=== PATIENT | female | born 1990 ===

== ENCOUNTER 2020-10-23 01:30 | Emergency (ER) | payer SELFPAY ==
[2020-10-23] MEDS ORDERED: HYDROCODONE/APAP 5/325 MG TAB ONE (02:09)
--- NOTE | 2020-10-23 02:41 | EDPHYS ---
Physician Documentation [facility] Name: Gaby Saez Age: 30 yrs Sex: Female : 1990 Arrival Date: 10/23/2020 Time: 01:33 Bed 8 Private MD: ANNETTA Physician Be Whittaker HPI: 10/23 01:49 This 30 yrs old Female presents to ER via Ambulatory with complaints of Foot Injury. mh7 01:49 The patient presents with an injury. The complaints affect the right foot. Context: The mh7 problem was sustained at work, resulted from a heavy object falling, box of liquor, Mechanism of Injury: Axial Compression the patient can fully bear weight, the patient is able to ambulate, with mild difficulty. Onset: The symptoms/episode began/occurred yesterday. Modifying factors: The symptoms are alleviated by nothing, the symptoms are aggravated by weight bearing, movement. Associated signs and symptoms: Pertinent negatives: calf tenderness, fever, nausea, numbness, rash, swelling, tingling, vomiting, warmth, weakness. Severity of symptoms: At their worst the symptoms were moderate, yesterday, in the emergency department the symptoms are unchanged. 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 - Social history:: Smoking status: Patient reports the use of cigarette tobacco products, smokes one-half pack cigarettes per day. ROS: 01:49 Constitutional: Negative for fever, chills, and weight loss, Eyes: Negative for injury, mh7 pain, redness, and discharge, Neck: Negative for injury, pain, and swelling. 01:49 ENT: Negative for injury, pain, and discharge, Cardiovascular: Negative for chest pain, palpitations, and edema, Respiratory: Negative for shortness of breath, cough, wheezing, and pleuritic chest pain, Abdomen/GI: Negative for abdominal pain, nausea, vomiting, diarrhea, and constipation, Back: Negative for injury and pain, : Negative for injury, bleeding, discharge, and swelling, Skin: Negative for injury, rash, and discoloration, Neuro: Negative for headache, weakness, numbness, tingling, and seizure, Psych: Negative for depression, anxiety, suicide ideation, homicidal ideation, and hallucinations, Allergy/Immunology: Negative for hives, rash, and allergies, Endocrine: Negative for neck swelling, polydipsia, polyuria, polyphagia, and marked weight changes, Hematologic/Lymphatic: Negative for swollen nodes, abnormal bleeding, and unusual bruising. Exam: 01:49 Constitutional: This is a well developed, well nourished patient who is awake, alert, mh7 and in no acute distress. Head/Face: Normocephalic, atraumatic. Eyes: Pupils equal round and reactive to light, extra-ocular motions intact. Lids and lashes normal. Conjunctiva and sclera are non-icteric and not injected. Cornea within normal limits. Periorbital areas with no swelling, redness, or edema. Neck: Trachea midline, no thyromegaly or masses palpated, and no cervical lymphadenopathy. Supple, full range of motion without nuchal rigidity, or vertebral point tenderness. No Meningismus. 01:49 Skin: Warm, dry with normal turgor. Normal color with no rashes, no lesions, and no evidence of cellulitis. Neuro: Awake and alert, GCS 15, oriented to person, place, time, and situation. Cranial nerves II-XII grossly intact. Motor strength 5/5 in all extremities. Sensory grossly intact. Cerebellar exam normal. Normal gait. Psych: Awake, alert, with orientation to person, place and time. Behavior, mood, and affect are within normal limits. 01:49 Musculoskeletal/extremity: Extremities: noted in the right foot dorsum: pain, tenderness, ROM: limited active range of motion due to pain, in the right foot, limited passive range of motion due to pain, in the right foot, Circulation is intact in all extremities. Pulses: are normal with no appreciated deficits, Perfusion: the patient is normally perfused throughout, Perfusion: the extremity is normally perfused throughout, Calf tenderness, is absent, Edema, is not appreciated, Sensation intact. Compartment Syndrome exam of affected extremity: is normal. no numbness, no tingling, no sensation deficit, no palor, no weak pulses, Joints: All joints appear normal with full range of motion. Weight bearing: able to fully bear weight, Tendon exam: specific tendon testing normal through active and passive range of motion 02:38 Chest/axilla: Normal chest wall appearance and motion. Nontender with no deformity. [facility] No lesions are appreciated. Cardiovascular: Regular rate and rhythm with a normal S1 and S2. No gallops, murmurs, or rubs. Normal PMI, no JVD. No pulse deficits. Respiratory: Lungs have equal breath sounds bilaterally, clear to auscultation and percussion. No rales, rhonchi or wheezes noted. No increased work of breathing, no retractions or nasal flaring. Abdomen/GI: Soft, non-tender, with normal bowel sounds. No distension or tympany. No guarding or rebound. No evidence of tenderness throughout. Back: No spinal tenderness. No costovertebral tenderness. Full range of motion. Vital Signs: 01:45 BP 135 / 89; Pulse 91; Resp 16; Temp 98.3; Pulse Ox 98% ; Weight 81.65 kg; Height 5 ft. rv 6 in. (167.64 cm); Pain 7/10; 02:40 BP 125 / 75; Pulse 90; Resp 17; Pulse Ox 98% ; rr5 01:45 Body Mass Index 29.05 (81.65 kg, 167.64 cm) rv MDM: 02:38 Differential diagnosis: fracture, sprain, contusion. Data reviewed: vital signs, nurses [facility] notes, radiologic studies, plain films. Data interpreted: Pulse oximetry: on room air is 98 %. Interpretation: normal. Counseling: I had a detailed discussion with the patient and/or guardian regarding: the historical points, exam findings, and any diagnostic results supporting the discharge/admit diagnosis, radiology results, the need for outpatient follow up, to return to the emergency department if symptoms worsen or persist or if there are any questions or concerns that arise at home. Response to treatment: the patient's symptoms have markedly improved after treatment. 02:[address] [facility] 10/23 01:48 Order name: Foot Right [address] [facility] 10/23 02:36 Order name: [place] Wrap; Complete Time: 02:36 rv 10/23 02:36 Order name: Ortho shoe; Complete Time: 02:36 10/23 02:37 Order name: Crutches; Complete Time: 02:43 [facility] Administered Medications: 01:52 Drug: [place] (HYDROcodone-acetaminophen) 5 mg-325 mg 1 tabs Route: PO; rv 02:45 Follow up: Response: No adverse reaction; RASS: Alert and Calm (0) rv Disposition: 10/23/20 02:40 Discharged to Home. Impression: Contusion, Right Foot. - Condition is Stable. - Discharge Instructions: Crutch Use, [id number], Foot Contusion, [id number]. - Prescriptions for Ibuprofen 800 mg Oral Tablet - take 1 tablet by ORAL route every 8 hours As needed take with food; 15 tablet. - Work release form, Medication Reconciliation Form, Thank You Letter, Antibiotic Education, Prescription Opioid Use form. - Follow up: Private Physician; When: 1 - 2 days; Reason: Worsening of condition, Recheck today's complaints, Continuance of care, Re-evaluation by your physician. Follow up: Irving Cesar DPM; When: 2 - 3 days; Reason: Worsening of condition, Recheck today's complaints. - Problem is new. - Symptoms have improved. Signatures: Dispatcher [employer] EDMS Bruce Bocanegra RN RN rv Gonzalo Loo RN RN rr5 Be Whittaker MD MD mh7 Corrections: (The following items were deleted from the chart) 02:47 02:40 10/23/2020 02:40 Discharged to Home. Impression: Contusion, Right Foot. Condition rr5 is Stable. Forms are Work release form, Medication Reconciliation Form, Thank You Letter, Antibiotic Education, Prescription Opioid Use. Follow up: Private Physician; When: 1 - 2 days; Reason: Worsening of condition, Recheck today's complaints, Continuance of care, Re-evaluation by your physician. Follow up: Irving Cesar; When: 2 - 3 days; Reason: Worsening of condition, Recheck today's complaints. Problem is new. Symptoms have improved. mh7
--- NOTE | 2020-10-23 02:41 | ER ---
Nurse's Notes [facility] Name: Gaby Saez Age: 30 yrs Sex: Female : 1990 Arrival Date: 10/23/2020 Time: 01:33 Bed 8 Private MD: Diagnosis: Contusion, Right Foot Presentation: 10/23 01:45 Chief complaint: Patient states: A BOX FULL OF LIQUOR FELL ON TOP OF THE RIGHT FOOT, rv YESTERDAY. PAIN DID NOT GET BETTER. Coronavirus screen: Client denies travel out of the [place] in the last 14 days. Ebola Screen: No symptoms or risks identified at this time. Initial Sepsis Screen: Does the patient meet any 2 criteria? No. Patient's initial sepsis screen is negative. Does the patient have a suspected source of infection? No. Patient's initial sepsis screen is negative. Risk Assessment: Do you want to hurt yourself or someone else? Patient reports no desire to harm self or others. Onset of symptoms was October 21, 2020. 01:45 Method Of Arrival: Ambulatory rv 01:45 Acuity: LIDA 4 rv Triage Assessment: 01:47 General: Appears comfortable, Behavior is calm, cooperative. Pain: Complains of pain in rv right foot. EENT: No signs and/or symptoms were reported regarding the EENT system. Neuro: Level of Consciousness is awake, alert, obeys commands, Oriented to person, place, time, situation. Cardiovascular: Patient's skin is warm and dry. Respiratory: Airway is patent Respiratory effort is even, unlabored. Musculoskeletal: Swelling absent. Injury Description: A BOX FELL ON TOP OF THE RIGHT FOOT. 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 - Social history:: Smoking status: Patient reports the use of cigarette tobacco products, smokes one-half pack cigarettes per day. Screenin:48 Abuse screen: Denies threats or abuse. Denies injuries from another. Nutritional rv screening: No deficits noted. Tuberculosis screening: No symptoms or risk factors identified. Fall Risk None identified. Assessment: 01:45 General: Appears in no apparent distress. uncomfortable, Behavior is calm, cooperative, rr5 appropriate for age. 01:45 Pain: Complains of pain in right foot Pain currently is 7 out of 10 on a pain scale. rr5 Quality of pain is described as aching, Pain began suddenly, Is intermittent. Neuro: Level of Consciousness is awake, alert, obeys commands, Oriented to person, place, time. Cardiovascular: Capillary refill < 3 seconds Patient's skin is warm and dry. Respiratory: Airway is patent Respiratory effort is even, unlabored, Respiratory pattern is regular, symmetrical. GI: No signs and/or symptoms were reported involving the gastrointestinal system. : No signs and/or symptoms were reported regarding the genitourinary system. EENT: No signs and/or symptoms were reported regarding the EENT system. Derm: Skin is pink, warm \T\ dry. Musculoskeletal: Capillary refill < 3 seconds, Reports pain in right foot. 02:45 Reassessment: Patient appears in no apparent distress at this time. Patient is alert, rr5 oriented x 3, equal unlabored respirations, skin warm/dry/pink. discharge instruction given and explained without complaints made. 02:46 Reassessment: patient refused for crutches. to cancel the crutches order. rr5 Vital Signs: 01:45 BP 135 / 89; Pulse 91; Resp 16; Temp 98.3; Pulse Ox 98% ; Weight 81.65 kg; Height 5 ft. rv 6 in. (167.64 cm); Pain 7/10; 02:40 BP 125 / 75; Pulse 90; Resp 17; Pulse Ox 98% ; rr5 01:45 Body Mass Index 29.05 (81.65 kg, 167.64 cm) rv ED Course: 01:33 Patient arrived in ED. bp1 01:36 Bruce Bocanegra RN is Primary Nurse. rv 01:36 Be Whittaker MD is Attending Physician. mh7 01:46 Triage completed. rv 01:47 Arm band placed on right wrist. Patient placed in the treatment room, on a stretcher, rv Patient notified of wait time. 01:48 Patient has correct armband on for positive identification. Pulse ox on. NIBP on. rv 02:07 Foot Right 3 View XRAY In Process Unspecified. EDMS 02:35 No provider procedures requiring assistance completed. Patient did not have IV access rv during this emergency room visit. 02:35 Ortho shoe applied to right foot. rr5 02:39 Irving Cesar DPM is Referral Physician. karla Administered Medications: 01:52 Drug: [place] (HYDROcodone-acetaminophen) 5 mg-325 mg 1 tabs Route: PO; rv 02:45 Follow up: Response: No adverse reaction; RASS: Alert and Calm (0) rv Outcome: 02:40 Discharge ordered by . mh7 02:46 Discharged to home ambulatory, with family. rr5 02:46 Condition: stable 02:46 Discharge instructions given to patient, Instructed on discharge instructions, follow up and referral plans. medication usage, Demonstrated understanding of instructions, follow-up care, medications, Prescriptions given X 1. 02:47 Patient left the ED. rr5 Signatures: Dispatcher [employer] EDMS Bruce Bocanegra RN RN rv Gonzalo Loo RN RN rr5 Debra Andrade Maurice, MD MD [facility]
[2020-10-23 03:17] VITALS: TEMP 98.3; O2SAT 98
[2020-10-23 03:18] VITALS: BP 125/75
--- NOTE | 2020-10-23 11:44 | RAD REPORT ---
EXAM DESCRIPTION: RAD - Foot Right 3 View - 10/23/2020 2:07 am CLINICAL HISTORY: 30 years, Female, trauma COMPARISON: None. FINDINGS: 3 X-ray views of the Right foot (frontal lateral and oblique) were performed. No areas of acute bony injuries were demonstrated. No gross articular or soft tissue abnormality is identified. There are no gross intraosseous lesions. No periosteal reaction were seen. IMPRESSION: NO EVIDENCE FOR FRACTURE OR DISLOCATION AT THE RIGHT FOOT. Electronically signed by: Jose L Gan MD 10/23/2020 2:17 AM CDT Due to temporary technical issues with the PACS/Fluency reporting system, reports are being signed by the in house radiologist without review as a courtesy to ensure prompt reporting. The interpreting r adiologist is fully responsible for the content of the report.
== END 2020-10-23 02:47 | disposition home or self-care (01) ==
LOC: ER 01:30
DX: S90.31XA Contusion of right foot, initial encounter (principal); W20.8XXA Other cause of strike by thrown, projected or falling object, initial encounter; Y93.89 Activity, other specified; Y92.89 Other specified places as the place of occurrence of the external cause; Y99.8 Other external cause status; F17.210 Nicotine dependence, cigarettes, uncomplicated
CPT/HCPCS: 99284